=== PATIENT | male | born 1955 | race Caucasian/White ===

== ENCOUNTER 2024-08-21 12:06 | Emergency (ER) | payer OTHER ==
--- NOTE | 2024-08-21 12:45 | RAD REPORT ---
EXAM: CT brain without contrast HISTORY: Syncope COMPARISON: None TECHNIQUE: Multiple contiguous axial images were obtained and a CT of the brain without contrast.. Sagittal and coronal reconstruction performed. Automated exposure control, adjustment of the mA and/or kV according to patient size, and/or iterative reconstruction. Unless otherwise specified, incidental f indings do not require dedicated imaging follow-up FINDINGS: An intracranial bleed is not seen Ventricles are normal caliber No extra-axial fluid collection noted 3 cm low-density area left parietal lobe has the appearance of infarction. 8 mm low-density left basal ganglia probably lacunar infarction. 8 mm low-density area anterior right basal ganglia probably old infarction. No fluid within the visualized sinuses or mastoids noted. IMPRESSION: No acute intracranial abnormality visualized. If the patient continues to have symptoms to suggest an acute intracranial abnormality then MRI of th e brain would be recommended.
--- NOTE | 2024-08-21 12:47 | RAD REPORT ---
Procedure: Chest Single View HISTORY: Syncope COMPARISON: none FINDINGS: The lungs appear clear of acute infiltrate. No significant pleural effusion noted. The heart is normal size. IMPRESSION: No acute abnormality is displayed.
[2024-08-21] MEDS ORDERED: NA CHLORIDE 0.9% 500 ML ONE (12:54)
[2024-08-21 13:13] LABS: Absolute Lymphocytes (CBC) 0.4 K/uL (0.7-4.9); Absolute Monocytes 0.6 K/uL (0.1-1.3); Absolute Neutrophil 8.8 K/uL (1.8-8.0); Basophils % 0.2 % (0-1.3); Eosinophils % 0.3 % (0-4.4); Hematocrit 37.7 % (39.6-49.0); Hemoglobin 12.4 g/dL (13.6-17.9); Lymphocytes % 4.1 % (15.3-44.8); MCH 31.3 pg (27.0-35.0); MCHC 32.9 g/dL (32.0-36.0); MCV 95.2 fL (80-100); MPV 8.4 fL (7.6-11.3); Monocytes % 6.5 % (3.3-12.3); Neutrophils % 88.9 % (41.7-73.7); Platelets 153 thou/uL (152-406); RBC Red Blood Cell Count 3.96 M/uL (4.33-5.43); Red Cell Distribution Width 14.6 % (12.1-15.2)
[2024-08-21 13:15] LABS: Specific Gravity 1.015 (1.005-1.030); Sqamous Epithelial <5 /HPF (None Seen); Urine Bacteria >50 /HPF (<20); Urine Bilirubin NEGATIVE (Negative); Urine Blood 2+ (Negative); Urine Clarity Extremely Turbid (Clear); Urine Color Yellow (Yellow); Urine Culture Reflex Order REFLEXED; Urine Glucose NEGATIVE (Negative); Urine Ketones NEGATIVE (Negative); Urine Microscopic Reflex YN ORDER UMIC; Urine Mucus 1+ /HPF (None Seen); Urine Nitrite 2+ (Negative); Urine Protein 2+ (Negative); Urine RBC 21-50 /HPF (None Seen); Urine Urobilinogen Normal (Normal); Urine WBC >50 /HPF (<5)
[2024-08-21 13:20] LABS: PT Prothrombin Time 12.4 SECONDS (9.4-12.5); PTT, Activated Partial Thromb 30.2 SECONDS (24.3-36.9); Protime INR 1.11
[2024-08-21 13:37] LABS: Bilirubin Direct 0.2 mg/dL (0-0.2); Bilirubin Indirect, Calculated 0.4 mg/dL (0.2-0.8); Bilirubin Total 0.6 mg/dL (0.2-1.0); Magnesium 2.2 mg/dL (1.6-2.4); Troponin High Sensitivity 8.4 pg/mL (<58.9)
[2024-08-21] MEDS ORDERED: CEFTRIAXONE 1000 MG/VIAL ONE (15:07)
[2024-08-21] MEDS ORDERED: NA CHLORIDE 0.9% 50 ML ONE (15:07)
[2024-08-21 15:36] LABS: Blood Morphology Comment NOT SEEN (NOT SEEN); Platelet Estimate ADEQ; White Blood Cell Scan OK (OK)
--- NOTE | 2024-08-21 15:54 | EDPHYS ---
Physician Documentation [facility] Name: Hayden Pittman Age: 68 yrs Sex: Male : 1955 Arrival Date: 08/21/2024 Time: 12:06 Bed 15 Private MD: ED Physician Lorenzo Sims HPI: 08/21 13:33 This 68 yrs old Male presents to ER via EMS with complaints of Syncope. rn 13:33 The patient has experienced syncope. Onset: The symptoms/episode began/occurred just rn prior to arrival. Duration: This was a single episode. Associated injury: The patient did not suffer any apparent associated injury. Associated signs and symptoms: Pertinent positives: lightheadedness, Pertinent negatives: chest pain, diaphoresis, seizure, shortness of breath, vertigo, vomiting, weakness. Current symptoms: Currently, the patient is not experiencing any symptoms. The patient has not experienced similar symptoms in the past. Patient reports was grocery shopping and felt lightheaded, legs gave out and passed out. EMS reports glucose 150s. Patient states completely back to his normal now. He did not eat anything today. Has just had a cup of coffee. Reports significant weight loss secondary to semaglutide medication but no longer takes it.. Historical: - Allergies: 12:15 semaglutide; iw - PMHx: 12:15 Diabetes mellitus; prostate cancer; Hypertensive disorder; iw - PSHx: 12:15 AAA repair; hiatal hernia; iw - Immunization history:: Adult Immunizations up to date. - Infectious Disease History:: Denies. - Social history:: Smoking status: Patient reports the use of cigarette tobacco products, smokes one pack cigarettes per day. - Family history:: not pertinent. - Hospitalizations: : No recent hospitalization is reported. ROS: 13:33 Constitutional: Negative for fever, chills, and weight loss, Cardiovascular: Negative rn for chest pain, palpitations, and edema, Respiratory: Negative for shortness of breath, cough, wheezing, and pleuritic chest pain, Abdomen/GI: Negative for abdominal pain, nausea, vomiting, diarrhea, and constipation, MS/Extremity: Negative for injury and deformity, Skin: Negative for injury, rash, and discoloration, Neuro: Negative for headache, weakness, numbness, tingling, and seizure, Exam: 13:33 Constitutional: This is a well developed, well nourished patient who is awake, alert, rn and in no acute distress. Head/Face: Normocephalic, atraumatic. ENT: Dry mucous membranes Cardiovascular: Regular rate and rhythm. No pulse deficits. Respiratory: No increased work of breathing, no retractions or nasal flaring. Abdomen/GI: Soft, non-tender MS/ Extremity: Pulses equal, no cyanosis. Neuro: Awake and alert, GCS 15 13:46 ECG was reviewed by the Attending Physician. rn Vital Signs: 12:14 BP 136 / 72; Pulse 64; Resp 16; Pulse Ox 98% on R/A; Weight 75.75 kg; Height 5 ft. 8 iw in. ; Pain 0/10; 14:03 BP 113 / 62; Pulse 71; Resp 18; Pulse Ox 96% on R/A; ph 15:00 BP 126 / 78; Pulse 70; Resp 18; Temp 98; Pulse Ox 98% on R/A; ph 16:14 BP 124 / 75; Pulse 69; Resp 18; Temp 98; Pulse Ox 100% on R/A; ph 12:14 Body Mass Index 25.39 (75.75 kg, 172.72 cm) iw 12:14 Pain Scale: Adult iw MDM: 12:12 Medical Screening Exam initiated rn 15:52 Differential Diagnosis: cardiac arrhythmia, cerebrovascular accident, transient rn ischemic attack, vasovagal episode, Urinary tract infection. Data reviewed: vital signs, nurses notes, lab test result(s), EKG, radiologic studies, CT scan, and as a result, I will discharge patient. Counseling: I had a detailed discussion with the patient and/or guardian regarding the historical points, exam findings, and any diagnostic results supporting the discharge/admit diagnosis, lab results, radiology results, the need for outpatient follow up, to return to the emergency department if symptoms worsen or persist or if there are any questions or concerns that arise at home. Response to treatment: the patient's symptoms have markedly improved after treatment, the patient's condition has returned to base line, the patient is now symptom free, and as a result, I will discharge patient. Special discussion: I discussed with the patient/guardian in detail that at this point there is no indication for admission to the hospital. It is understood, however, that if the symptoms persist or worsen the patient needs to return immediately for re-evaluation. ED course: Patient returned to baseline upon arrival to the emergency room. 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 UA positive for UTI, will discharge home with antibiotics as does not meet septic criteria and otherwise stable.. 08/21 12:24 Order name: Basic Metabolic Panel; Complete Time: 13:59 rn 08/21 12:24 Order name: CBC with Diff rn 08/21 12:24 Order name: Hepatic Function; Complete Time: 13:59 rn 08/21 12:24 Order name: Magnesium; Complete Time: 13:59 rn 08/21 12:24 Order name: Protime (+inr); Complete Time: 13:59 rn 08/21 12:24 Order name: Ptt, Activated; Complete Time: 13:59 rn 08/21 12:24 Order name: Troponin High Sensitivity; Complete Time: 13:59 rn 08/21 12:24 Order name: Urinalysis w/ reflexes; Complete Time: 13:59 rn 08/21 13:17 Order name: Urine Culture EDLA 08/21 15:36 Order name: CBC Smear Scan EDLA 08/21 12:24 Order name: CT Head Brain wo Cont; Complete Time: 12:58 rn 08/21 12:24 Order name: Chest Single View XRAY; Complete Time: 12:58 rn 04 12:24 Order name: Cardiac monitoring; Complete Time: 12:52 rn 08/21 12:24 Order name: EKG - Nurse/Tech; Complete Time: 12:52 rn 08/21 12:24 Order name: IV Saline Lock; Complete Time: 12:53 rn 08/21 12:24 Order name: Labs collected and sent; Complete Time: 12:53 rn 08/21 12:24 Order name: NPO; Complete Time: 12:53 rn 08/21 12:24 Order name: O2 Per Protocol; Complete Time: 12:53 rn 08/21 12:24 Order name: O2 Sat Monitoring; Complete Time: 12:53 rn EC:46 Rate is 65 beats/min. Rhythm is regular. Left axis deviation noted. QRS is positive in rn lead I and negative in lead aVF. QRS interval is normal. QT interval is normal. No Q waves. T waves are Normal. No ST changes noted. Clinical impression: NSR w/ Non-specific ST/T Changes. Interpreted by me. Reviewed by me. Administered Medications: 13:01 Drug: NS 0.9% IV 500 ml 500 ml IV at 1 bolus once; to be given as a bolus over 30 ph minutes Volume: 500 ml; Route: IV; Rate: 1 bolus; Site: right antecubital; 13:35 Follow up: Response: No adverse reaction; IV Status: Completed infusion; IV Intake: ph 500ml 15:10 Drug: Rocephin IV 1 grams IV at calculated rate once; Given slow IV push per pharmacy ph instructions Route: IV; Rate: calculated rate; Site: right antecubital; 15:41 Follow up: Response: No adverse reaction; IV Status: Completed infusion; IV Intake: 50mlph Disposition Summary: 08/21/24 15:53 Discharge Ordered Notes: Location: Home rn Problem: new rn Symptoms: have improved rn Condition: Stable rn Diagnosis - Syncope rn - UTI/ Urinary tract infection, site not specified rn Followup: rn - With: Yonathan Goss MD - When: As needed - Reason: Recheck today's complaints, Re-evaluation by your physician Discharge Instructions: - Discharge Summary Sheet rn - Syncope rn - Urinary Tract Infection, Adult rn Forms: - Medication Reconciliation Form rn - Antibiotic internet marketing manager - Prescription Opioid Use rn - Patient Portal Instructions rn - Leadership Thank You Letter rn Prescriptions: - cefpodoxime 100 mg Oral Tablet - take 2 tablets ORAL route every 12 hours for 10 days take with food; 40 tablet; rn Refills: 0, Product Selection Permitted Signatures: Dispatcher [employer] Fátima Cole RN RN iw Nieto, Roman, MD MD rn Hall, Patricia, RN RN ph Corrections: (The following items were deleted from the chart) 12:25 12:25 Head Brain Wo Cont+CT.RAD.BRZ ordered. EDMS EDMS 12:25 12:25 Chest Single View+RAD.RAD.BRZ ordered. EDMS EDMS 15:42 12:24 Orthostatics ordered. rn ph
--- NOTE | 2024-08-21 15:54 | ER ---
Nurse's Notes [facility] Name: Hayden Pittman Age: 68 yrs Sex: Male : 1955 Arrival Date: 08/21/2024 Time: 12:06 Bed 15 Private MD: Diagnosis: Syncope;UTI/ Urinary tract infection, site not specified Presentation: 08/21 12:09 Chief complaint: EMS states: syncopal episode while at grocery store , did not feel iw dizzy at the time and feels back to normal now , reports feeling very tired before passing out. Coronavirus screen: At this time, the client does not indicate any symptoms associated with coronavirus-19. Ebola Screen: No symptoms or risks identified at this time. Risk Assessment: Do you want to hurt yourself or someone else? Patient reports no desire to harm self or others. Care prior to arrival: Glucose check: 150. 12:09 Acuity: TORI 3 iw 12:09 Method Of Arrival: EMS: [facility] iw 12:10 Initial Sepsis Screen: Does the patient meet any 2 criteria? No. Patient's initial iw sepsis screen is negative. Does the patient have a suspected source of infection? No. Patient's initial sepsis screen is negative. 12:10 Onset of symptoms was August 21, 2024. Care prior to arrival: IV initiated. 20 GA, in iw the right antecubital area. 12:16 Activity prior to arrival: loss of consciousness. Mechanism of Injury:. Transition of iw care: patient was not received from another setting of care. Triage Assessment: 12:16 General: Appears in no apparent distress. Behavior is calm, cooperative. Pain: Denies iw pain. Historical: - Allergies: 12:15 semaglutide; iw - PMHx: 12:15 Diabetes mellitus; prostate cancer; Hypertensive disorder; iw - PSHx: 12:15 AAA repair; hiatal hernia; iw - Immunization history:: Adult Immunizations up to date. - Infectious Disease History:: Denies. - Social history:: Smoking status: Patient reports the use of cigarette tobacco products, smokes one pack cigarettes per day. - Family history:: not pertinent. - Hospitalizations: : No recent hospitalization is reported. Screenin:03 [facility] ED Fall Risk Assessment (Adult) History of falling in the last 3 months, ph including since admission Yes- physiologic fall (2 pts) Confusion or Disorientation No (0 pts) Intoxicated or Sedated No (0 pts) Impaired Gait Mobility Assist Device Used No (0 pt) Altered Elimination No (0 pt) Score/Fall Risk Level 0 - 2 = Low Risk Oriented to surroundings, Maintained a safe environment, Educated pt \T\ family on fall prevention, incl call for assistance when getting out of bed, Hourly rounding (assess needs \T\ fall precautionary measures) done, Used ambulatory aids as needed (educated on \T\ assisted with). Abuse screen: Denies threats or abuse. Denies injuries from another. Nutritional screening: No deficits noted. Tuberculosis screening: No symptoms or risk factors identified. Assessment: 14:02 General: Appears in no apparent distress. comfortable, well groomed, Behavior is calm, ph cooperative, appropriate for age. Pain: Denies pain. Neuro: Level of Consciousness is awake, alert, obeys commands, Oriented to person, place, time, situation, Reports a syncopal episode. Cardiovascular: Reports fatigue, syncope, Denies chest pain, lightheadedness, nausea, palpitations, shortness of breath, vomiting, Rhythm is regular. Respiratory: Airway is patent Respiratory effort is even, unlabored. GI: : No signs and/or symptoms were reported regarding the genitourinary system. Derm: Skin is pink, warm \T\ dry. Vital Signs: 12:14 BP 136 / 72; Pulse 64; Resp 16; Pulse Ox 98% on R/A; Weight 75.75 kg; Height 5 ft. 8 iw in. ; Pain 0/10; 14:03 BP 113 / 62; Pulse 71; Resp 18; Pulse Ox 96% on R/A; ph 15:00 BP 126 / 78; Pulse 70; Resp 18; Temp 98; Pulse Ox 98% on R/A; ph 16:14 BP 124 / 75; Pulse 69; Resp 18; Temp 98; Pulse Ox 100% on R/A; ph 12:14 Body Mass Index 25.39 (75.75 kg, 172.72 cm) iw 12:14 Pain Scale: Adult iw Vitals: 14:03 Cardiac Rhythm Assessment Sinus rhythm. ph ED Course: 12:09 Patient arrived in ED. iw 12:10 Triage completed. iw 12:12 Lorenzo Sims MD is Attending Physician. rn 12:14 Dawson, Fátima, RN is Primary Nurse. iw 12:16 Arm band placed on. iw 12:33 CT Head Brain wo Cont In Process Unspecified. EDMS 12:33 Maintain EMS IV. Dressing intact. Good blood return noted. Site clean \T\ dry. Gauge \T\ iw site: 20 RAC. Flushed with 10 mL NS. 12:39 Chest Single View XRAY In Process Unspecified. EDMS 12:46 Shy Marlow, RN is Primary Nurse. ph 12:50 Initial lab(s) drawn, by me, sent to lab. ph 13:00 Urine collected: clean catch specimen. ph 14:05 Patient has correct armband on for positive identification. Bed in low position. Call ph light in reach. Side rails up X 1. Provided Education on: Use of call light and estimated time for test results. Client placed on continuous cardiac and pulse oximetry monitoring. NIBP monitoring applied. lunchroom monitor on. 14:05 No provider procedures requiring assistance completed. ph 15:53 Yonathan Goss MD is Referral Physician. rn 16:15 IV discontinued, intact, bleeding controlled, No redness/swelling at site. Pressure ph dressing applied. Administered Medications: 13:01 Drug: NS 0.9% IV 500 ml 500 ml IV at 1 bolus once; to be given as a bolus over 30 ph minutes Volume: 500 ml; Route: IV; Rate: 1 bolus; Site: right antecubital; 13:35 Follow up: Response: No adverse reaction; IV Status: Completed infusion; IV Intake: ph 500ml 15:10 Drug: Rocephin IV 1 grams IV at calculated rate once; Given slow IV push per pharmacy ph instructions Route: IV; Rate: calculated rate; Site: right antecubital; 15:41 Follow up: Response: No adverse reaction; IV Status: Completed infusion; IV Intake: 50mlph Medication: 14:05 VIS not applicable for this client. ph Intake: 13:35 IV: 500ml; Total: 500ml. ph 15:41 IV: 50ml; Total: 550ml. ph Outcome: 15:53 Discharge ordered by . rn 16:15 Discharged to home ambulatory, with friend, ph 16:15 Condition: good 16:15 Discharge instructions given to patient, Instructed on discharge instructions, follow up and referral plans. medication usage, Demonstrated understanding of instructions, follow-up care, medications, 16:15 Patient left the ED. ph Addendum: 08/24/2024 13:07 Addendum: Culture Results: Positive urine culture. No further action required. Bacteria h b sensitive to prescribed antibiotic. Signatures: Dispatcher [employer] EDFátima Lainez RN RN iw Lorenzo Sims MD MD rn Hall, Patricia, RN RN Rosanne Hamlin RN RN Corrections: (The following items were deleted from the chart) 08/21 12:15 12:09 Chief complaint: EMS states: syncopal episode while at grocery store , did not iw feel dizzy at the time and feels back to normal now iw 12:29 12:14 BP 136 / 72; Resp 16bpm; Pulse Ox 98% RA; 75.75 kg; Height 5 ft. 8 in.; BMI: iw 25.3; Pain 0/10, Adult; iw 14:01 14:01 NS 0.9% IV 500 ml 500 ml IV at 1 bolus in right antecubital ph ph
[2024-08-21 21:30] VITALS: TEMP 98
[2024-08-21 21:32] VITALS: BP 124/75; O2SAT 100
== END 2024-08-21 16:15 | disposition home or self-care (01) ==
LOC: ER 12:06
DX: R55 Syncope and collapse (principal); N39.0 Urinary tract infection, site not specified; E11.9 Type 2 diabetes mellitus without complications; I10 Essential (primary) hypertension
CPT/HCPCS: 96365; 96361; 87088; 85025; 81001; 87086; 80048; 36415; 83735; 85610; 80076; 85730; 87077; 87186; 84484; 70450; 71045; 99285; J7040; J0696